=== PATIENT | male | born 1930 | race Caucasian/White ===

== ENCOUNTER 2018-01-09 10:58 | Outpatient (CLI) | payer OTHER ==
[~2018-01-09] VITALS: Ht 177.8 cm; Wt 94.1 kg
--- NOTE | ~2018-01-09 | OP ---
PATIENT NAME: USMAN HARDIN MEDICAL RECORD: [id number] :31 LOCATION:D.CAT ADMISSION DATE: SURGEON: ARIANA ALBRIGHT MD DATE OF OPERATION: 01/09/2018 PROCEDURE: Cardioversion. DESCRIPTION OF PROCEDURE: After general sedation via anesthesia via TIVA, a single synchronized shock was successful in restoring atrial fibrillation to normal sinus rhythm. IMPRESSION: Successful cardioversion of atrial fibrillation to normal sinus rhythm. COMPLICATIONS: None. ESTIMATED BLOOD LOSS: Minimal. DISPOSITION: To the floor, stable. TRANSINT:[id number] Voice Confirmation ID: [id number] DOCUMENT ID: [id number] ARIANA ALBRIGHT MD at 1424 CC: [id number] DICTATION DATE: 01/09/18 1315 DRYING AND WINDING SUPERVISOR: 01/09/18 1604 DEP CLI 01/09/18 [facility] [address] [place] [address]
--- NOTE | ~2018-01-09 | HEMODYNAMI ---
PATIENT:USMAN HARDIN MEDICAL RECORD: [id number] : 31 LOCATION:ANGELINE ADMISSION DATE: 01/09/18 Generatedon:01/09/201813:16 Patient name: USMAN HARDIN Patient #: [id number] SSN: D OB: 1930 Date of study: 01/09/2018 Page: Of Hemodynamic Procedure Report Patient Data Patient Demographics Procedure consent was obtained First Name: USMAN Gender: Male Last Name: LASHAWN : 1930 Middle Initial: EDWARD Age: 87 year(s) Patient #: [id number] Race: Unknown Additional ID: [id number] Contact details Address: [address] [place] [address] State: [place] City: [facility] [place] Zip code: [address] Past Medical History Allergies: No known allergies Admission Admission Data Admission Date: 01/09/2018 Admission Time: 10:58 Procedure Procedure Types Cath Procedure Diagnostic Procedure Cardioversion External Procedure Description Procedure Date Procedure Date: 01/09/2018 Procedure Start Time: 13:07 Procedure End Time: 13:16 Procedure Staff Name Function Doug Ritter MD Performing Physician Shobha Kinsey RT Monitor Bora Mitchell RN Nurse Oliverio Byrne CRNA Additional personnel Procedure Data Cath Procedure Estimated blood loss: 0 ml Procedure Complications No complications Procedure Medications Medication Administration Route Dosage 0.9% NaCl I.V. 100 ml/hr Oxygen etCO2 Nasal cannula 3 l/min Refer to Anesthesia Notes for Sedation Medications Hemodynamics Rest Heart Rate: 65 (bpm) Snapshots Pre Cath Intra NCS Post Cath Vital Signs Time Heart Resp SPO2 etCO2 NIBP Rhythm Pain Sedation Rate (ipm) (%) (mmHg) (mmHg) Status Level (bpm) 13:07:45 62 98 36.6 Measuring NSR 0 (11) 10(A) , No pain 13:09:09 71 13 97 31.4 Time NSR 0 (11) 10(A) Exceeded , No pain 13:11:13 70 12 97 33.6 115/75(95) NSR 0 (11) 10(A) , No pain 13:14:08 70 11 98 32.1 109/68(90) NSR 0 (11) 10(A) , No pain Medications Time Medication Route Dose Verified Delivered Reason Notes Effective ness by by 13:06:40 0.9% NaCl I.V. 100 Bora Bora Per ml/hr Stephen Mitchell physician RN RN 13:06:52 Oxygen etCO2 3 [place] Per Nasal l/min Stephen Mitchell physician cannula RN RN 13:07:05 Refer to Bora Sahni for Anesthesia Setphen Mitchell sedation Notes for RN RN Sedation Medications Procedure Log Time Note 12:53:40 Signed procedure consent form obtained from patient. 12:53:42 Bora Mitchell RN sent for patient. Start room use. 12:53:43 Time tracking: Regular hours (M-F 7:00 - 5:00) 12:53:47 Plan of Care:Hemodynamics will remain stable., Cardiac rhythm will remain stable., Comfort level will be maintained., Respiratory function will remain adequate., Patient/ family verbilizes understanding of procedure., Procedure tolerated without complication., Recovers from procedure without complications.. 12:54:12 H&P Date Dictated: 01/07/2018 Within 30 days and on chart., H&P Addendum completed by physician on day of procedure. (MUST COMPLETE FOR ALL OUTPATIENTS). 12:54:22 Patient allergic to No known allergies 13:00:04 Patient arrived from Pre/Post Procedure Room to CCL 3. Patient remains on bed/stretcher for procedure. 13:00:05 Warm blankets applied, and ricardo hugger turned on for patient comfort. 13:00:06 Correct patient and procedure confirmed by team. 13:00:07 ECG and BP/O2 sat monitors applied to patient. 13:05:55 Vital chart was started 13:05:56 Baseline sample Acquired. 13:06:01 Rhythm: atrial fibrillation 13:06:02 Full Disclosure recording started 13:06:03 Pre-procedure instructions explained to patient. 13:06:03 Pre-op teaching completed and patient verbalized understanding. 13:06:05 Family in patients room. 13:06:09 Is the patient allergic to Iodine/contrast media? No. 13:06:10 Is patient on blood thinner?Yes 13:06:14 ACC The patient was administered the following blood thiners within the last 24 hours: Eliquis 13:06:17 Patient diabetic? No. 13:06:20 Previous problem with sedation/anesthesia? No ? 13:06:21 Snore? No 13:06:22 Sleep apnea? No 13:06:23 Deviated septum? No 13:06:23 Opens mouth fully? Yes 13:06:24 Sticks out tongue? Yes 13:06:26 Airway obstruction? No ? 13:06:28 Dentures? No ? 13:06:36 IV patent on arrival in right antecubital with 0.9% NaCl at [facility]. 13:06:40 0.9% NaCl 100 ml/hr I.V. was administered by Bora Mitchell RN; Per physician; 13::42 --------ALL STOP TIME OUT------ 13:06:42 Final Timeout: patient, procedure, and site verified with staff and physician. All members of the team are in agreement. 13:06:48 Physical assessment completed. ASA score P 2 - A patient with mild systemic disease as per Doug Ritter MD. 13:06:52 Oxygen 3 l/min etCO2 Nasal cannula was administered by Bora Mitchell RN; Per physician; 13:06:52 Sedation plan: TIVA Medication:Propofol 13:06:57 Oliverio Byrne CRNA present and monitoring patient for TIVA. 13:07:01 Quick combo pads placed on patients chest and back. 13:07:05 Refer to Anesthesia Notes for Sedation Medications was administered by Bora Mitchell RN; for sedation; 13:07:10 Quick Combo opened to sterile field. 13:07:32 Procedure started. 13:08:04 Defibrillator synced and charged to 200 Joules. 13:08:09 Shock delivered. 13:08:42 Patient cardioverted to sinus rhythm . 13:09:12 Procedure ended.(Physican Out) 13:09:40 Vital chart was stopped 13:09:41 Vital chart was started 13:12:16 Sharps counted by scrub and verified by R.N. 13:12:21 Post-procedure physical assessment completed. ASA score P 2 - A patient with mild systemic disease as per Doug Ritter MD. 13:12:23 Post procedure rhythm: sinus rhythm 13:12:25 Estimated blood loss: 0 ml 13:12:32 Post procedure instruction explained to patient.Patient verbalizes understanding. 13:12:32 Patient needs reinforcement of post procedure teaching. 13:13:28 Procedure and supply charges have been captured, reviewed, submitted and are correct. 13:13:31 Procedure Complication : No complications 13:16:19 See physician's report for complete and final results. 13:16:21 Report given to Pre/Post Procedure Room. 13:16:24 Patient transfered to Pre/Post Procedure Room with Bed. 13:16:26 Procedure ended. 13:16:26 Full Disclosure recording stopped 13:16:28 End room use (Document Last) 13:16:54 Vital chart was stopped Device Usage Item Manufacture Quantity Catalog Hospital Part Current Minimal Lot# / Name Number Charge Number Stock Edmundo Ochoa de# Code [employer] [id number] Combo Signature Audit [place] Stage Time Signature Unsigned Intra-Procedure 01/09/2018 Shobha Kinsey 1:16:51 PM RT(R) Signatures Monitor : Shobha Kinsey Signature : RT Date : Time : [address] [address]
[2018-01-09] MEDS ORDERED: CALCIUM 600+D T1 TA1 PO (11:35)
[2018-01-09] MEDS ORDERED: MULTIPLE VITAMI1 TA1 PO (11:35)
[2018-01-09] MEDS ORDERED: OMEPRAZOLE20 M1 PO (11:35)
[2018-01-09] MEDS ORDERED: FOLBIC RF TABL1 EACH PO (11:36)
[2018-01-09] MEDS ORDERED: MAGNESIUM OXID500 MG PO (11:43)
[2018-01-09] MEDS ORDERED: BAYER CHEWABLE81 MG PO (11:43)
[2018-01-09] MEDS ORDERED: BETAPACE 80 MG80 MG PO (11:44)
[2018-01-09] MEDS ORDERED: MOBIC7.5 MG PO (11:44)
[2018-01-09] MEDS ORDERED: ELIQUIS5 MG PO (11:44)
[2018-01-09] MEDS ORDERED: FERROUS SULFAT325 MG (11:45)
[2018-01-09] MEDS ORDERED: EX-LAX MAXIMUM25 MG PO (11:46)
[2018-01-09] MEDS ORDERED: MELATONIN5 MG PO (11:46)
[2018-01-09] MEDS ORDERED: COLACE100 MG (11:47)
[2018-01-09] MEDS ORDERED: ADVIL200 MG PO (11:48)
[2018-01-09] MEDS ORDERED: HYDROCHLOROTH12.5 M1 PO (11:48)
[2018-01-09 12:14] VITALS: BP 157/96; Ht 177.8 cm; Wt 94.1 kg
[2018-01-09 12:41] LABS: BASOPHILS 0.4 % (0-2); EOSINOPHILS 0.8 % (0-7); HEMATOCRIT 41.2 % (42.0-54.0); HEMOGLOBIN 14.2 g/dL (13.5-17.5); IMMATURE GRANULOCYTES 0.1 % (0-5); LYMPHOCYTES 43.7 % (15-50); MCH 32.6 pg (26.0-34.0); MCHC 34.5 g/dL (31.0-37.0); MCV 94.7 fL (80.0-100.0); MEAN PLATELET VOLUME 9.7 fL (7.4-10.4); MONOCYTES 13.5 % (2-11); NEUTROPHILS 41.5 % (40-80); PLATELET COUNT 178 10x3/uL (130-400); RBC 4.35 10x6/uL (4.20-6.10); RDW 15.3 % (11.5-14.5); WBC 7.7 10x3/uL (4.8-10.8)
[2018-01-09 12:52] LABS: CALC OSMOLALITY 273 mosm/kg (275-300); CARBON DIOXIDE 27.3 mmol/L (21.0-32.0); CHLORIDE - SERUM 100 mmol/L (98-107); GLUCOSE 97 mg/dL (74-106); POTASSIUM - SERUM 4.2 mmol/L (3.5-5.1); SODIUM 136 mmol/L (136-145); UREA NITROGEN 17 mg/dL (7-18); eGFR NON AFRICAN AMERICAN 75 mL/min (90-120)
[2018-01-09 12:56] LABS: INR 1.43 (0.85-1.17)
== END 2018-01-09 14:50 | disposition home or self-care (01) ==
LOC: D.CATH 10:58
PROVIDERS: Internal Medicine Interventional Cardiology
DX: I48.91 Unspecified atrial fibrillation (principal); M19.90 Unspecified osteoarthritis, unspecified site; Z01.812 Encounter for preprocedural laboratory examination

== ENCOUNTER 2019-03-27 11:04 | Outpatient (CLI) | payer OTHER ==
[~2019-03-27] VITALS: Ht 177.8 cm; Wt 93.2 kg
--- NOTE | ~2019-03-27 | HEMODYNAMI ---
PATIENT:USMAN HARDIN MEDICAL RECORD: [id number] : 31 LOCATION:[facility]INE ADMISSION DATE: 03/27/19 Generatedon:03/27/201913:38 Patient name: USMAN HARDIN Patient #: [id number] SSN: D OB: 1930 Date of study: 03/27/2019 Page: Of Hemodynamic Procedure Report Patient Data Patient Demographics Procedure consent was obtained First Name: USMAN Gender: Male Last Name: LASHAWN : 1930 Middle Initial: CATWARD Age: 88 year(s) Patient #: [id number] Race: Unknown Additional ID: [id number] Contact details Address: [address] [place] [address] State: [place] City: [facility] Zip code: [address] Past Medical History Allergies: No known allergies Admission Admission Data Admission Date: 03/27/2019 Admission Time: 11:04 Height (in.): 70 BSA: 2.09 (m2) Height (cm.): 177.8 BMI: 28.84 (kg/m2) Weight (lbs.): 201 Weight (kg.): 91.17 Lab Results Lab Result Date: 03/27/2019 Lab Result Time: 0:00 Biochemistry Name Units Result Min Max BUN mg/dl 22 --(----)-* 7 18 Creatinine mg/dl 1.1 --(--*-)-- 0.6 1.3 CBC Name Units Result Min Max Hematocrit % 38.7 *-(----)-- 42 54 Hemoglobin g/dl 13.5 --(*---)-- 13.5 17.5 Procedure Procedure Types Cath Procedure Diagnostic Procedure Cardioversion External EMELIA Procedure Description Procedure Date Procedure Date: 03/27/2019 Procedure Start Time: 13:24 Procedure End Time: 13:37 Procedure Staff Name Function Doug Ritter MD Performing Physician Shobha Kinsey RT Monitor Kiki Cantu RN Nurse Liz Kwan CRNA Additional personnel Norma Wilkins Gameplay Programmer Procedure Data Cath Procedure Fluoroscopy Diagnostic fluoroscopy Total fluoroscopy Time: 0 time: 0 min min Diagnostic fluoroscopy Total fluoroscopy dose: 0 dose: 0 mGy mGy Contrast Material Contrast Material Type Amount (ml) Isovue 300 0 Estimated blood loss: 0 ml Procedure Complications No complications Procedure Medications Medication Administration Route Dosage Oxygen etCO2 Nasal cannula 2 l/min Hur[facility] P[address] Sprays Refer to Anesthesia Notes for Sedation Medications Hemodynamics Rest BSA: 2.09 (m2) HGB: 13.5 (g/dl) O2 Consumption: Estimated: 235.39 (ml/min) O2 Consumption indexed: Estimated:112.63 (ml/min/m) Heart Rate: 69 (bpm) Snapshots Pre Cath Intra NCS Post Cath Vital Signs Time Heart Resp SPO2 etCO2 NIBP (mmHg) Rhythm Pain Sedation Rate (ipm) (%) (mmHg) Status Level (bpm) 13:15:47 73 12 98 143/77(119) A-Fib 0 (11) 10(A) , No pain 13:19:59 72 19 99 0 153/102(136) A-Fib 0 (11) 10(A) , No pain 13:24:13 70 13 93 9.7 111/72(94) A-Fib 0 (11) 10(A) , No pain 13:28:43 73 13 100 30.8 114/83(98) A-Fib 0 (11) 9(A) , No pain 13:32:51 72 13 96 0 98/68(78) Paced 0 (11) 10(A) , No pain 13:36:57 70 15 90 33.8 97/62(82) Paced 0 (11) 10(A) , No pain Medications Time Medication Route Dose Verified Delivered Reason Notes Effectiv eness by by 13:15:56 Oxygen etCO2 2 Doug Swanson Per Nasal l/min St Norberto Cantu RN physician cannula 13:16:05 Hurricaine [address] Doug Swanson Per [place] [facility] Sprays St Norberto Cantu RN physician 13:16:09 Refer to Doug Swanson Anesthesia St Norberto Cantu RN Notes for Sedation Medications Procedure Log Time Note 12:31:07 Signed procedure consent form obtained from patient. 12:31:10 Procedure Status Elective Heart Cath (OP). 12:31:12 Time tracking: Regular hours (M-F 7:00 - 5:00) 12:31:17 Plan of Care:Hemodynamics will remain stable., Cardiac rhythm will remain stable., Comfort level will be maintained., Respiratory function will remain adequate., Patient/ family verbilizes understanding of procedure., Procedure tolerated without complication., Recovers from procedure without complications.. 12:40:07 Patient allergic to No known allergies 12:40:23 Patient Weight : 201 lbs 12:40:41 Patient Height : 70 inches 13:02:11 Shobha Kinsey RT(R) sent for patient. Start room use. 13:07:25 Patient arrived from Pre/Post Procedure Room to CCL 1. Patient remains on bed/stretcher for procedure. 13:07:27 Warm blankets applied, and ricardo hugger turned on for patient comfort. 13:07:27 Correct patient and procedure confirmed by team. 13:07:28 ECG and BP/O2 sat monitors applied to patient. 13:07:41 H&P Date Dictated: 03/19/2019 Within 30 days and on chart., H&P Addendum completed by physician on day of procedure. (MUST COMPLETE FOR ALL OUTPATIENTS). 13:07:46 Pre-procedure instructions explained to patient. 13:07:46 Pre-op teaching completed and patient verbalized understanding. 13:07:47 Family in waiting room. 13:07:50 Patient NPO since Midnight. 13:08:20 Is patient on blood thinner?Yes 13:08:23 ACC The patient was administered the following blood thiners within the last 24 hours: Xarelto 13:08:35 Patient diabetic? No. 13:08:38 Previous problem with sedation/anesthesia? No ? 13:08:39 Snore? No 13:08:40 Sleep apnea? No 13:08:41 Deviated septum? No 13:08:45 Opens mouth fully? Yes 13:08:50 Sticks out tongue? Yes 13:08:52 Airway obstruction? No ? 13:08:55 Dentures? Yes out 13:08:58 Patient pain scale 0/10 ?. 13:09:06 IV patent on arrival in left forearm with 0.9% NaCl at [facility]. 13:10:08 Norma Wilkins Finishing Tunnel Operator present for EMELIA. 13:12:53 Lab Result : BUN 22 mg/dl 13:12:53 Lab Result : Creatinine 1.1 mg/dl 13:12:53 Lab Result : Hemoglobin 13.5 g/dl 13:12:53 Lab Result : Hematocrit 38.7 % 13:13:05 Ubaldo Kwan CRNA present and monitoring patient for TIVA. 13:14:39 Baseline sample Acquired. 13:14:39 Vital chart was started 13:14:43 Rhythm: sinus rhythm 13:14:45 Full Disclosure recording started 13:14:52 Lab results completed and on chart. 13:14:53 Alarms reviewed by Abdiaziz Lockett 13:15:02 Quick Combo opened to sterile field. 13:15:10 Quick combo pads placed on patients chest and back. 13:15:14 Physician arrived 13:15:14 --------ALL STOP TIME OUT------ 13:15:14 Final Timeout: patient, procedure, and site verified with staff and physician. All members of the team are in agreement. 13:15:21 Fire Safety Assessment: C--Open oxygen or nitrous oxide is being used. 13:15:25 Physical assessment completed. ASA score P 3 - A patient with severe systemic disease as per Doug Ritter MD. 13:15:33 Sedation plan: TIVA Medication:Propofol 13:15:56 Oxygen 2 l/min etCO2 Nasal cannula was administered by Kiki Cantu RN; Per physician; 13:16:05 [facility] 1 Sprays P.O. was administered by Kiki Cantu RN; Per physician; 13:16:09 Refer to Anesthesia Notes for Sedation Medications was administered by Kiki Cantu RN; ; 13:16:18 Procedure started. 13:16:19 EMELIA started. 13:27:22 EMELIA completed. 13:28:36 Defibrillator synced and charged to 200 Joules. 13:28:37 Shock delivered. 13:28:40 Patient cardioverted to sinus rhythm , paced. 13:28:58 Procedure ended.(Physican Out) 13:30:24 Fluoroscopy time 00.00 minutes. 13:30:27 Fluoroscopy dose: 0 mGy 13:30:27 Flurop Dose total: 0 13:30:32 Dose Area Product 0 mGy/cm. 13:30:34 Contrast amount:Isovue 300 0ml. 13:30:51 Post-procedure physical assessment completed. ASA score P 3 - A patient with severe systemic disease as per Doug Ritter MD. 13:31:58 Post procedure rhythm: sinus rhythm , paced 13:32:01 Estimated blood loss: 0 ml 13:32:08 Post procedure instruction explained to patient.Patient verbalizes understanding. 13:32:08 Patient needs reinforcement of post procedure teaching. 13:32:32 Procedure and supply charges have been captured, reviewed, submitted and are correct. 13:32:34 Procedure Complication : No complications 13:37:09 Vital chart was stopped 13:37:09 See physician's report for complete and final results. 13:37:11 Report given to Pre/Post Procedure Room. 13:37:13 Patient transfered to Pre/Post Procedure Room with Stretcher. 13:37:15 Procedure ended. 13:37:15 Full Disclosure recording stopped 13:37:29 End room use (Document Last) Device Usage Item Manufacture Quantity Catalog Hospital Part Current Minimal Lot# / Name Number Charge Number Stock Stock Seri al# Code [employer] 1 [id number] Combo Signature Audit [place] Stage Time Signature Unsigned Intra-Procedure 03/27/2019 Shobha Kinsey 1:38:48 PM RT(R) Signatures Performing Physician : Signature : Doug Ritter MD Date : Time : Monitor : Sohbha Kinsey Signature : RT Date : Time : Nurse : Kiki Cantu RN Signature : Date : Time : Nurse : Liz Madrid RN Signature : Date : Time : [place] [address] [place] [address]
[~2019-03-27 11:04] MED LIST: ADVIL200 MG PO; BAYER CHEWABLE81 MG PO; BETAPACE 80 MG80 MG PO; CALCIUM 600+D T1 TA1 PO; COLACE100 MG; ELIQUIS5 MG PO; EX-LAX MAXIMUM25 MG PO; FERROUS SULFAT325 MG; FOLBIC RF TABL1 EACH PO; HYDROCHLOROTH12.5 M1 PO; MAGNESIUM OXID500 MG PO; MELATONIN5 MG PO; MOBIC7.5 MG PO; MULTIPLE VITAMI1 TA1 PO; OMEPRAZOLE20 M1 PO
[2019-03-27] MEDS ORDERED: SALMON OIL PO (11:19)
[2019-03-27] MEDS ORDERED: EX-LAX MAXIMUM25 MG PO (11:21)
[2019-03-27] MEDS ORDERED: XARELTO20 MG PO (11:22)
[2019-03-27] MEDS ORDERED: VITAMIN D3400 UNI1 PO (11:23)
[2019-03-27] MEDS ORDERED: BENADRYL25 MG PO (11:24)
[2019-03-27] MEDS ORDERED: ACETAMINOPHEN500 M1 PO (11:25)
[2019-03-27 11:55] VITALS: BP 153/90; Ht 177.8 cm; Wt 93.2 kg
[2019-03-27 12:02] LABS: BASOPHILS 0.3 % (0-2); EOSINOPHILS 0.7 % (0-7); HEMATOCRIT 38.7 % (42.0-54.0); HEMOGLOBIN 13.5 g/dL (13.5-17.5); LYMPHOCYTES 42.7 % (15-50); MCH 32.5 pg (26.0-34.0); MCHC 34.9 g/dL (31.0-37.0); MCV 93.3 fL (80.0-100.0); MEAN PLATELET VOLUME 9.5 fL (7.4-10.4); MONOCYTES 14.4 % (2-11); NEUTROPHILS 41.9 % (40-80); PLATELET COUNT 209 10x3/uL (130-400); RBC 4.15 10x6/uL (4.20-6.10); RDW 15.5 % (11.5-14.5); WBC 7.1 10x3/uL (4.8-10.8)
[2019-03-27 12:18] LABS: ANION GAP 10.2 mmol/L (8-16); CARBON DIOXIDE 28.3 mmol/L (21.0-32.0); CREATININE - SERUM 1.1 mg/dL (0.6-1.3); POTASSIUM - SERUM 4.5 mmol/L (3.5-5.1)
[2019-03-27 12:21] LABS: INR 1.24 (0.85-1.17); PROTIME 15.1 SECONDS (11.6-15.0)
--- NOTE | 2019-03-27 14:09 | NUR ---
1345 RECEIVED PT FROM AIR CONTROL/ANTI AIR WARFARE OFFICER. PT IS ALERT, DENIES ANY C/O CHEST PAIN OR NAUSEA. SIGHT REDNESS TO CARDIOVERSION PAD SITES, PT DENIES ANY DISCOMFORT TO AREA. PACED RHYTHM AT 73. NO FAMILY AT BEDSIDE, CALL LIGHT IS IN REACH.
--- NOTE | 2019-03-27 14:11 | NUR ---
PT SITTING UP IN BED, WATCHING TV. PT DENIES ANY C/O. PACED AT 70.
--- NOTE | 2019-03-27 15:19 | NUR ---
1430 PT SITTING UP IN BED, WATCHING TV. DENIES ANY C/O PAIN OR NAUSEA. GAG REFLEX INTACT, PO FLUIDS SERVED. 1455 PT HAS TOLERATED PO FLUIDS WITH NO PROBLEMS. OFFERED SANDWICH AND PT DECLINES. IV DC'D WITH CATH INTACT AND PT IS DRESSING FOR DC WITH ASSIST. 1510 DC INSTRUCTIONS HAVE BEEN REVIEWED WITH PT AND WHO VERBALIZE UNDERSTANDING. PT IS ALERT AND DENIES ANY C/O. PT ESCORTED TO PRIVATE AUTO VIA WC BY NURSE WITH DRIVING HIM HOME. PT HAS ALL PERSONAL BELONGINGS AND DC INSTRUCTIONS AT TIME OF DISCHARGE.
--- NOTE | 2019-03-31 13:55 | OP ---
PATIENT NAME: USMAN HARDIN MEDICAL RECORD: [id number] :31 LOCATION:D.CAT ADMISSION DATE: SURGEON: ARIANA ALBRIGHT MD DATE OF OPERATION: 03/27/2019 PROCEDURE: Cardioversion. DESCRIPTION OF PROCEDURE: After sedation via TIVA via anesthesia, a single synchronized shock was successful in restoring atrial fibrillation to normal sinus rhythm. IMPRESSION: Successful cardioversion. COMPLICATIONS: None. DISPOSITION: To the recovery stable. TRANSINT:[id number] Voice Confirmation ID: [id number] DOCUMENT ID: [id number] ARIANA ALBRIGHT MD at 1355 CC: [id number] DICTATION DATE: 03/27/19 1356 ETHYLENE OXIDE PANELBOARD OPERATOR: 03/27/19 1408 [facility] CLI 03/27/[address] [address]
--- NOTE | 2019-03-31 13:55 | TEE ---
PATIENT:USMAN HARDIN MEDICAL RECORD: [id number] LOCATION:D.CAT AGE OF PATIENT: 88 ADMISSION DATE: 03/27/19 SEX: M REFERRING PHYSICIAN: INTERPRETING PHYSICIAN: ARIANA ALBRIGHT MD TRANSESOPHAGEAL ECHOCARDIOGRAM Date: 03/27/19 EMELIA CHARGE INDICATIONS: CARDIOVERSION PREMEDICATIONS: PATIENT'S RESPONSE PROCEDURE DOPPLER MEASUREMENTS: LVIT LA PA RA LVOT RVOT Asc. Ao AV Gradient Peak AV Mean AV Area MV Gradient Peak MV Mean MV Area INTERPRETATION: Doppler: 2-D: COLOR FLOW DOPPLER NORMAL SALINE STUDY: MISCELLANOUS: DIAGNOSIS: PLAN: Offender Job Retention Specialist:3 Dr. Stephenson Coagulating Bath Mixer: Shama SEGURA COMMENTS: DATE OF SERVICE: 03/27/2019 After general sedation via TIVA via anesthesia, transesophageal Omniplane probe was placed in the distal esophagus and the proximal stomach without any difficulty. FINDINGS: LVH is present. LV internal dimensions are normal. Wall motion is normal. EF is greater than or equal to 55%. Aortic valve is sclerotic; however, there is good valve excursion. No significant AI by color-flow TRANSESOPHAGEAL ECHOCARDIOGRAM REPORT [id number] JOSE HARDIN imaging. Left atrium is well visualized and this appears normal. The left atrial appendage is well visualized with no evidence of thrombus, good contractility, and no more than mild MR. Right-sided chambers appear grossly normal. Tricuspid valve and pulmonic valves are all visualized with no more than mild TR. At the end of procedure, transesophageal Omniplane probe was turned posteriorly and this showed no atherosclerotic debris in the descending aorta. TRANSINT:[id number] Voice Confirmation ID: [id number] DOCUMENT ID: [id number] at 1355 CC: [id number] DICTATION DATE: 03/27/19 1355 EDITORIAL MANAGER: 03/27/19 1533 DEP CLI 03/27/19 [place] [id number]
== END 2019-03-27 15:10 | disposition home or self-care (01) ==
LOC: D.CATH 11:04
PROVIDERS: ATTEND Internal Medicine Interventional Cardiology
DX: I48.91 Unspecified atrial fibrillation (principal); Z01.812 Encounter for preprocedural laboratory examination